=== PATIENT | male | born 1950 | race Caucasian/White ===

== ENCOUNTER 2017-02-06 05:27 | Observation (INO) ==
--- NOTE | 2017-02-06 05:55 | Emergency Department Note ---
Disposition Clinical Impression: Laceration Anemia Qualifiers: Anemia type: unspecified type Qualified Code(s): D64.9 - Anemia, unspecified Disposition: Admitted As Inpatient Condition: Serious Referrals: Dean Singh MD [Primary Care Provider] - Forms: ED Satisfaction Letter Time of Disposition: 06:34 Extremity Problem HPI - General Chief complaint: ED Extremity Problem,Nontraumatic Stated complaint: L Foot Bleeding Won't Stop Time Seen by Provider: 02/06/17 05:42 Source: patient Mode of arrival: private vehicle Limitations: no limitations Nursing Notes Reviewed: Yes Vital Signs Reviewed: Yes - History of Present Illness HPI Narrative: 66-year-old male with past medical history of DVT and PE on Coumadin presents with significant bleeding from his left first toe. He stubbed the toe 5 days ago with uncontrolled bleeding. He was seen in the emergency department with a tight dressing placed. Before he was able to get home he had to return to the emergency department that night and had another dressing placed with Surgicel with resolution of his bleeding. He would not allow his to change the dressing until today and when she attempted to change the dressing immediately started bleeding significantly. It bled on his floor despite the use of direct pressure and surgeon himself from his . They placed a garbage bag around it tightly with collected several hundred mL of blood. He admits to lightheadedness since this. He denies any chest pain or shortness of breath. He denies any new injury. X-ray on the index visit was negative for fracture. Pain Scale: 0 - Related Data Home Medications Medication Instructions Recorded Confirmed Allopurinol [Zyloprim] 100 mg PO BID 09/16/15 09/16/15 Aspirin [Adult Low Dose Aspirin EC] 81 mg PO QPM 09/16/15 09/16/15 Ferrous Sulfate 325 mg PO BID 09/16/15 09/16/15 Furosemide [Lasix] 40 mg PO DAILY 09/16/15 09/16/15 Insulin Glargine,Hum.rec.anlog 25 unit SQ DAILY 09/16/15 09/16/15 [Lantus Solostar] Loratadine [Claritin] 10 mg PO DAILY 09/16/15 09/16/15 Pantoprazole Sodium [Protonix] 40 mg PO DAILY 09/16/15 09/16/15 Potassium Chloride 20 meq PO BID 09/16/15 09/16/15 Warfarin [Coumadin] 7.5 mg PO AD PRN 09/16/15 09/16/15 Warfarin [Coumadin] 10 mg PO AD PRN 09/16/15 09/16/15 Previous Rx's Medication Instructions Recorded Atorvastatin [Lipitor] 40 mg PO HS #30 tablet 09/18/15 Levothyroxine [Synthroid] 100 mcg PO DAILY #30 tablet 09/18/15 Allergies Allergy/AdvReac Type Severity Reaction Status Date / Time lisinopril AdvReac Cough Verified 02/06/17 05:33 All systems ED: reviewed and negative except as stated. Past Medical History - Past Medical History Attestation: Yes The following information was validated with the patient. Medical history: Reports: arthritis, atrial fibrillation, cardiomyopathy, CHF, COPD, coronary artery disease, DVT, diabetes, GERD, hyperlipidemia, hypertension , myocardial infarction, renal disease, venous stasis, other Surgical history: Reports: angioplasty/stent, coronary bypass (CABG), pacemaker/ AICD Psychiatric history: Reports: no psych history - Social History Smoking Status: Never smoker Smokeless Tobacco Status: No Alcohol use: Reports: none Drug use: Reports: none Physical Exam - Head Head exam: atraumatic, normocephalic, normal inspection - Eye Eye exam: Present: conjunctival pallor, PERRL, EOMI - ENT ENT exam: normal exam, normal oropharynx, mucous membranes moist - Neck Neck exam: Present: normal inspection, full ROM, trachea midline - Chest Chest inspection: Present: normal inspection, symmetric chest wall rise - Respiratory Respiratory exam: Clear to auscultation bilaterally without wheezes rales or rhonchi Cardiovascular Cardiovascular exam: Present: regular rate, normal rhythm, normal heart sounds - Abdominal Exam Abdominal exam: Present: soft, Non-Tender. Absent: tenderness, distention, guarding, rebound, rigidity - Extremities Exam Initially, the left foot was wrapped with a garbage bag that was taped tightly and his ankle. When I was removing this, it became apparent that the bag was full of blood. I placed a blood pressure cuff to his calf as a tourniquet and completed the removal. There was a site to his left great toenail bed that was oozing blood where he had had the injury from stubbing his toe. Surgicel was placed and this was wrapped with a tight Coban dressing over 4 x 4's. Tourniquet was taken down and there is no further bleeding. - Back Exam Back exam: Present: normal inspection, full ROM. Absent: tenderness, CVA tenderness (R), CVA tenderness (L) - Neurological Exam Neurological exam: Present: alert, oriented X3, CN II-XII intact - Psychiatric Psychiatric exam: Present: normal affect, normal mood - Skin Skin exam: Present: warm, dry, intact, pallor - General General appearance: alert, in no apparent distress Course - Reevaluation(s) Reevaluation #1: Bleeding is controlled at this time. Dr. anthony notify the patient and will see patient in consult. He may need to take patient to the OR today for repair and washout. We will admit patient to hospitalist. Type and cross is ordered. Vitamin K is ordered. Time: 06:33 Vital Signs Temperature 97.8 F 02/06/17 05:28 Pulse Rate 81 02/06/17 05:28 Respiratory Rate 20 02/06/17 05:28 Blood Pressure 106/63 02/06/17 05:28 O2 Sat by Pulse Oximetry 99 02/06/17 05:28 Temperature 97.8 F 02/06/17 05:28 Pulse Rate 78 02/06/17 06:26 Respiratory Rate 16 02/06/17 06:26 Blood Pressure 109/69 02/06/17 06:26 O2 Sat by Pulse Oximetry 98 02/06/17 06:26 Oxygen Delivery Oxygen Delivery Room Air Extremity Problem, Nontraumati - Lab Data Result diagrams: 02/06/17 05:47 02/06/17 05:47 Lab Results 02/06/17 02/06/17 02/06/17 Range/Units 05:47 05:47 05:47 WBC 6.2 (4.3-11.1) K/mcL RBC 2.75 L (4.19-5.50) M/mcL Hgb 8.1 L (12.9-16.9) g/dL Hct 24.6 L (37.5-50.1) % MCV 89.5 (83.0-100.0) fL MCH 29.5 (28.0-33.3) pg MCHC 32.9 (31.6-35.5) g/dL RDW 18.9 H (11.5-14.5) % Plt Count 150 (140-400) K/mcL MPV 9.6 (9.4-12.4) fL Immature Gran % 0.3 (0-4) % Seg Neutrophils % 75.8 % Lymphocytes % 11.9 % Monocytes % 9.2 % Eosinophils % 2.6 % Basophils % 0.2 % Neutrophils # 4.7 (1.6-8.9) K/mcL Lymphocytes # 0.7 (0.6-4.6) K/mcL Monocytes # 0.6 (0.0-1.3) K/mcL Eosinophils # 0.2 (0.0-0.6) K/mcL Basophils # 0.0 (0.0-0.2) K/mcL PT 20.6 H D (9.4-12.1) Seconds INR 1.9 D APTT 38.2 H (26.0-36.0) Seconds Sodium 138 (136-145) mEq/L Potassium 4.2 (3.5-4.5) mEq/L Chloride 104 (98-109) mEq/L Carbon Dioxide 24 (19-29) mEq/L BUN 78 H (8-26) mg/dL Creatinine 2.73 H (0.72-1.25) mg/dL Est GFR ( Amer) 29 L (> 60) Est GFR (Non-Af Amer) 24 L (> 60) BUN/Creatinine Ratio 29 H (6-26) Glucose 123 H (70-99) mg/dL Calculated Osmolality 311 H (280-300) Calcium 8.8 (8.6-10.8) mg/dL Attestation Statement - Attestation Attestation: I, Alexei Nixon, examined this patient and my medical decision-making was reviewed with the SENIOR STATISTICIAN/PA/Advanced Practice Nurse/Resident Physician. I agree with the documented findings, disposition and treatment plan as described except to the extent set forth below. 66-year-old male presents with bleeding from the left great toe. Patient states he stubbed his toe 4 days ago and had a significant amount of bleeding. He states his INR at that time was 4.5. He stopped taking his Coumadin and recently started again today per her doctor's instructions. Patient had a hemoglobin of 8.5 at that time. Today the patient had a significant amount of bleeding from the site after the bandage came loose. Patient presents in the emergency department with a significant amount of blood in a plastic bag and in the dressing surrounding bleeding site. Patient states that he is symptomatic with increased weakness and fatigue over the past few hours. Patient is pale on my physical exam. He has a blood pressure with systolic 97. Patient will likely be admitted for further care and evaluation of anemia secondary to laceration of great toe nailbed.
[2017-02-06 05:57] LABS: Basophils % 0.2 %; Eosinophils # 0.2 K/mcL (0.0-0.6); Eosinophils % 2.6 %; Hematocrit 24.6 % (37.5-50.1); Hemoglobin 8.1 g/dL (12.9-16.9); Immature Granulocytes % 0.3 % (0-4); Lymphocytes # 0.7 K/mcL (0.6-4.6); Lymphocytes % 11.9 %; Mean Corpuscular HGB Conc 32.9 g/dL (31.6-35.5); Mean Corpuscular Hemoglobin 29.5 pg (28.0-33.3); Mean Corpuscular Volume 89.5 fL (83.0-100.0); Mean Platelet Volume 9.6 fL (9.4-12.4); Monocytes # 0.6 K/mcL (0.0-1.3); Monocytes % 9.2 %; Neutrophils # 4.7 K/mcL (1.6-8.9); Platelet Count 150 K/mcL (140-400); Red Blood Count 2.75 M/mcL (4.19-5.50); Red Cell Distribution Width 18.9 % (11.5-14.5); Segmented Neutrophils % 75.8 %
[2017-02-06 06:04] LABS: INR 1.9; Prothrombin Time 20.6 Seconds (9.4-12.1)
[2017-02-06 06:05] LABS: Activated Partial Thrombo Time 38.2 Seconds (26.0-36.0)
[2017-02-06 06:10] LABS: Calcium 8.8 mg/dL (8.6-10.8); Potassium 4.2 mEq/L (3.5-4.5)
[2017-02-06] MEDS ORDERED: *HR* FentaNYL (PF) 100 MCG/2 ML VIAL IVP ONE ×2 (06:11→07:28)
--- NOTE | 2017-02-06 07:29 | Emergency Department Note ---
Disposition Clinical Impression: Laceration Anemia Qualifiers: Anemia type: unspecified type Qualified Code(s): D64.9 - Anemia, unspecified Disposition: Admitted As Inpatient Condition: Serious General Adult HPI - General Chief complaint: ED Extremity Problem,Nontraumatic Stated complaint: L Foot Bleeding Won't Stop Time Seen by Provider: 02/06/17 05:42 Source: patient Mode of arrival: private vehicle Limitations: no limitations - History of Present Illness Pain Scale: 0 - Related Data Home Medications Medication Instructions Recorded Confirmed Allopurinol [Zyloprim] 100 mg PO BID 09/16/15 02/06/17 Aspirin [Adult Low Dose Aspirin EC] 81 mg PO QPM 09/16/15 02/06/17 Ferrous Sulfate 325 mg PO BID 09/16/15 02/06/17 Furosemide [Lasix] 40 mg PO DAILY 09/16/15 02/06/17 Pantoprazole Sodium [Protonix] 40 mg PO DAILY 09/16/15 02/06/17 Potassium Chloride 20 meq PO BID 09/16/15 02/06/17 Warfarin [Coumadin] 7.5 mg PO TUTHSA 09/16/15 02/06/17 Warfarin [Coumadin] 10 mg PO SUMOWEFR 09/16/15 02/06/17 Carvedilol [Coreg] 6.25 mg PO BID 02/06/17 02/06/17 HYDROcodone/Acet 5/325 mg [[place] 1 tab PO BID PRN 02/06/17 02/06/17 5-325 mg] Insulin DETEMIR [Levemir Flextouch] 20 unit SQ HS 02/06/17 02/06/17 Losartan [Cozaar] 12.5 mg PO DAILY 02/06/17 02/06/17 Metolazone [Zaroxolyn] 2.5 mg PO Q48H 02/06/17 02/06/17 Mv-Mn/FA/Vit K/Lycop/Lut/Coq10 1 each PO BID 02/06/17 02/06/17 [Daily Multivitamin Capsule] Previous Rx's Medication Instructions Recorded Levothyroxine [Synthroid] 100 mcg PO DAILY #30 tablet 09/18/15 Allergies Allergy/AdvReac Type Severity Reaction Status Date / Time lisinopril AdvReac Cough Verified 02/06/17 06:42 Past Medical History - Past Medical History Medical history: Reports: arthritis, atrial fibrillation, cardiomyopathy, CHF, COPD, coronary artery disease, DVT, diabetes, GERD, hyperlipidemia, hypertension , myocardial infarction, renal disease, venous stasis, other Surgical history: Reports: angioplasty/stent, coronary bypass (CABG), pacemaker/ AICD Psychiatric history: Reports: no psych history - Social History Smoking Status: Never smoker Smokeless Tobacco Status: No Alcohol use: Reports: none Drug use: Reports: none Physical Exam - General Limitations: no limitations General appearance: alert, in no apparent distress Course Vital Signs Temperature 97.8 F 02/06/17 05:28 Pulse Rate 81 02/06/17 05:28 Respiratory Rate 20 02/06/17 05:28 Blood Pressure 106/63 02/06/17 05:28 O2 Sat by Pulse Oximetry 99 02/06/17 05:28 Temperature 97.8 F 02/06/17 05:28 Pulse Rate 77 02/06/17 07:22 Respiratory Rate 18 02/06/17 07:26 Blood Pressure 100/80 02/06/17 07:26 O2 Sat by Pulse Oximetry 97 02/06/17 07:22 Oxygen Delivery Oxygen Delivery Room Air Medical Decision Making - Lab Data Result diagrams: 02/06/17 05:47 02/06/17 05:47 Lab Results 02/06/17 02/06/17 02/06/17 Range/Units 05:47 05:47 05:47 WBC 6.2 (4.3-11.1) K/mcL RBC 2.75 L (4.19-5.50) M/mcL Hgb 8.1 L (12.9-16.9) g/dL Hct 24.6 L (37.5-50.1) % MCV 89.5 (83.0-100.0) fL MCH 29.5 (28.0-33.3) pg MCHC 32.9 (31.6-35.5) g/dL RDW 18.9 H (11.5-14.5) % Plt Count 150 (140-400) K/mcL MPV 9.6 (9.4-12.4) fL Immature Gran % 0.3 (0-4) % Seg Neutrophils % 75.8 % Lymphocytes % 11.9 % Monocytes % 9.2 % Eosinophils % 2.6 % Basophils % 0.2 % Neutrophils # 4.7 (1.6-8.9) K/mcL Lymphocytes # 0.7 (0.6-4.6) K/mcL Monocytes # 0.6 (0.0-1.3) K/mcL Eosinophils # 0.2 (0.0-0.6) K/mcL Basophils # 0.0 (0.0-0.2) K/mcL PT 20.6 H D (9.4-12.1) Seconds INR 1.9 D APTT 38.2 H (26.0-36.0) Seconds Sodium 138 (136-145) mEq/L Potassium 4.2 (3.5-4.5) mEq/L Chloride 104 (98-109) mEq/L Carbon Dioxide 24 (19-29) mEq/L BUN 78 H (8-26) mg/dL Creatinine 2.73 H (0.72-1.25) mg/dL Est GFR ( Amer) 29 L (> 60) Est GFR (Non-Af Amer) 24 L (> 60) BUN/Creatinine Ratio 29 H (6-26) Glucose 123 H (70-99) mg/dL Calculated Osmolality 311 H (280-300) Calcium 8.8 (8.6-10.8) mg/dL Blood Type Antibody Screen 02/06/17 Range/Units 06:05 WBC (4.3-11.1) K/mcL RBC (4.19-5.50) M/mcL Hgb (12.9-16.9) g/dL Hct (37.5-50.1) % MCV (83.0-100.0) fL MCH (28.0-33.3) pg MCHC (31.6-35.5) g/dL RDW (11.5-14.5) % Plt Count (140-400) K/mcL MPV (9.4-12.4) fL Immature Gran % (0-4) % Seg Neutrophils % % Lymphocytes % % Monocytes % % Eosinophils % % Basophils % % Neutrophils # (1.6-8.9) K/mcL Lymphocytes # (0.6-4.6) K/mcL Monocytes # (0.0-1.3) K/mcL Eosinophils # (0.0-0.6) K/mcL Basophils # (0.0-0.2) K/mcL PT (9.4-12.1) Seconds INR APTT (26.0-36.0) Seconds Sodium (136-145) mEq/L Potassium (3.5-4.5) mEq/L Chloride (98-109) mEq/L Carbon Dioxide (19-29) mEq/L BUN (8-26) mg/dL Creatinine (0.72-1.25) mg/dL Est GFR ( Amer) (> 60) Est GFR (Non-Af Amer) (> 60) BUN/Creatinine Ratio (6-26) Glucose (70-99) mg/dL Calculated Osmolality (280-300) Calcium (8.6-10.8) mg/dL Blood Type A POSITIVE Antibody Screen NEGATIVE Attestation Statement - Attestation Attestation: I was not involved in the care of this patient. Prior to transport to the floor , he did request an additional dose of analgesics for his foot pain. I did order a dose of fentanyl which she tolerated previously during his emergency department visit
[2017-02-06] MEDS ORDERED: Naloxone 0.4 MG/ML INJ IVP PRN (09:11)
[2017-02-06] MEDS ORDERED: Acetaminophen 325 MG TABLET PO PRN (09:11)
[2017-02-06] MEDS ORDERED: Ondansetron ODT 4 MG TAB.RAPDIS SL PRN (09:11)
[2017-02-06] MEDS ORDERED: *HR* Morphine 2 MG/ML SYRINGE IVP PRN (09:11)
[2017-02-06] MEDS ORDERED: *HR* HYDROcodone/Acet 5/325 mg TABLET PO PRN (09:11)
[2017-02-06] MEDS ORDERED: metOLazone 2.5 MG TABLET PO SCH (10:00)
[2017-02-06] MEDS ORDERED: D5% in Water 1,000 ML IVC PRN (10:07)
[2017-02-06] MEDS ORDERED: *HR* Dextrose 50 % in Water (Syg) 50 ML SYRINGE IVP PRN (10:07)
[2017-02-06] MEDS ORDERED: Dextrose Gel 15 GM PO PRN ×2 (10:07)
--- NOTE | 2017-02-06 10:57 | Event Note ---
Date of Encounter: 02/06/17 Time of Encounter: 10:52 Patient seen and examined with nurse practitioner. Patient had traumatic avulsion of the left great toe nail 5 days ago after which he presented to the emergency room addressing was placed and he was advised to discontinue Coumadin and to restarted again 3 days ago. He restarted taking Coumadin for the past 3 days. His was unwrapping the dressing and noted large amount of blood approximately half a liter coming from the wound. Presented again to the emergency room and dressing was applied to act as a [place] to stop bleeding. I was unable to evaluate his left foot cause of concern of really bleeding. We will discuss the case now with podiatry service. Will discuss with them that they feel patient needs antibiotics according to their exam will be ordered. Patient has acute blood loss anemia both half a gram hemoglobin dropped. We follow that. His INR today's 1.9. He has received 10 mg IV vitamin K in the emergency room. No active bleeding currently. He has acute and chronic kidney injury probably from cute blood loss and relative hypotension. Will hold his diuretics today. Patient is focal.
--- NOTE | 2017-02-06 10:59 | Podiatry Consult Note ---
Date of Encounter: 02/06/17 Time of Encounter: 10:57 Assessment and Plan (1) Laceration Current visit: Yes Status: Acute From my standpoint at this time the patient could be discharged. I understand the patient will likely need to have a stable hemoglobin level as well as a therapeutic INR level prior to discharge. From a podiatric standpoint this patient can be discharged with the current dressing which is in place and empiric antibiotics due to the long-standing open lesion. Keflex was prescribed and a prescription was written. The patient will not change the dressing and leave the dressing intact until he follows up with me in approximately 1 week. We will change his dressings in clinic. The patient will limit his ambulation. Patient will keep the dressings clean dry and intact until the next visit. History of Present Illness Chief complaint: Uncontrolled bleeding left great toe HPI: Mr. Ocasio is a 66 year old male who presents to the hospital with multiple comorbidities and uncontrolled bleeding to his left great toe. Patient has had multiple trips to the emergency department. At this time during the most recent trip his INR has come down to 1.9 and the patient relates that the bleeding seems to have stabilized since the emergency department put on a dressing. Patient relates that the dressing feels too tight and it feels as though it is coming off his circulation. Patient denies any other pedal complaints. Past Med Surg Social Fam HX - Past Medical History Medical history: arthritis, atrial fibrillation, cardiomyopathy, CHF, COPD, coronary artery disease, DVT, diabetes, GERD, hyperlipidemia, hypertension, myocardial infarction, renal disease, venous stasis, other Psychiatric history: no psych history - Past Surgical History Surgical History: angioplasty/stent, coronary bypass (CABG), pacemaker/AICD - Social History Smoking Status: Never smoker Smokeless Tobacco Status: No Alcohol use: none Drug use: none - Family History Father History Unknown: Yes Age at : 56 Cause of : Cancer (lymph) Hx Family Cancer: Yes Mother History Unknown: Yes Age at : 55 Cause of : Heart Hx Family Cardiac Disorders: Yes Sister History Unknown: Yes Age at : 36 Cause of : Heart attack Hx Family Cardiac Disorders: Yes Medications and Allergies Allopurinol [Zyloprim] 100 mg PO BID 09/16/15 [History] Aspirin [Adult Low Dose Aspirin EC] 81 mg PO QPM 09/16/15 [History] Ferrous Sulfate 325 mg PO BID 09/16/15 [History] Furosemide [Lasix] 40 mg PO DAILY 09/16/15 [History] Pantoprazole Sodium [Protonix] 40 mg PO DAILY 09/16/15 [History] Potassium Chloride 20 meq PO BID 09/16/15 [History] Warfarin [Coumadin] 7.5 mg PO TUTHSA 09/16/15 [History] Warfarin [Coumadin] 10 mg PO SUMOWEFR 09/16/15 [History] Levothyroxine [Synthroid] 100 mcg PO DAILY #30 tablet 09/18/15 [Rx] Carvedilol [Coreg] 6.25 mg PO BID 02/06/17 [History] Cephalexin [Keflex] 500 mg PO BID #12 capsule 02/06/17 [Rx] HYDROcodone/Acet 5/325 mg [[place] 5-325 mg] 1 tab PO BID PRN 02/06/17 [History] Insulin DETEMIR [Levemir Flextouch] 20 unit SQ HS 02/06/17 [History] Losartan [Cozaar] 12.5 mg PO DAILY 02/06/17 [History] Metolazone [Zaroxolyn] 2.5 mg PO Q48H 02/06/17 [History] Mv-Mn/FA/Vit K/Lycop/Lut/Coq10 [Daily Multivitamin Capsule] 1 each PO BID [History] Allergies lisinopril Adverse Reaction (Verified 02/06/17 06:42) Cough All Systems Reviewed: A 10-system review of systems was performed and is negative for pertinent findings except as documented above in the HPI. Physical Exam - Constitutional Vitals: Temp Pulse Resp BP Pulse Ox 97.4 F L 77 16 101/69 97 02/06/17 08:12 02/06/17 08:12 02/06/17 08:12 02/06/17 08:12 02/06/17 08:12 Exam: Multiple small excoriations noted bilateral lower extremities no bleeding noted. The left great toe has a small laceration noted with Surgicel covering the laceration. The Surgicel was not removed due to concerns of bleeding and the site appears to be stable and not bleeding at this point. The bleeding appears to have stopped. No erythema or proximally ascending lymphangitis noted. Capillary fill time is intact to digits. Sensation is grossly intact to light touch. Results - Labs Result Diagrams: 02/06/17 05:47 02/06/17 05:47 Labs: Abnormal lab results RBC 2.75 M/mcL (4.19-5.50) L 02/06/17 05:47 Hgb 8.1 g/dL (12.9-16.9) L 02/06/17 05:47 Hct 24.6 % (37.5-50.1) L 02/06/17 05:47 RDW 18.9 % (11.5-14.5) H 02/06/17 05:47 PT 20.6 Seconds (9.4-12.1) H D 02/06/17 05:47 APTT 38.2 Seconds (26.0-36.0) H 02/06/17 05:47 BUN 78 mg/dL (8-26) H 02/06/17 05:47 Creatinine 2.73 mg/dL (0.72-1.25) H 02/06/17 05:47 Est GFR ( Amer) 29 (> 60) L 02/06/17 05:47 Est GFR (Non-Af Amer) 24 (> 60) L 02/06/17 05:47 BUN/Creatinine Ratio 29 (6-26) H 02/06/17 05:47 Glucose 123 mg/dL (70-99) H 02/06/17 05:47 Calculated Osmolality 311 (280-300) H 02/06/17 05:47 All other labs normal. Consult Discharge Plan - Plan Referrals: Dean Singh MD [Primary Care Provider] - 02/15/17 3:15 pm () Prescriptions: Cephalexin [Keflex] 500 mg PO BID #12 capsule
[2017-02-06 11:26] LABS: Hematocrit 22.7 % (37.5-50.1); Hemoglobin 7.5 g/dL (12.9-16.9)
--- NOTE | 2017-02-06 11:46 | Internal Med History&Physical ---
Date of Encounter: 02/06/17 Time of Encounter: 08:00 Assessment and Plan (1) Nail avulsion of toe Current visit: Yes Status: Acute Assess: Patient presents to ED with laceration of the left great toe and avulsion of the left nail of the great toe which resulted in uncontrolled bleeding. Patient' s INR was 1.9 on admission and he was given 10 mg of vitamin K in the ED. Patient's Hgb was 8.1 which was down from 8.5. Plan: Patient placed as observation status Hold Coumadin therapy for now until INR level increases Continue 81 mg aspirin therapy Podiatry consult ordered and confirmed with Dr. Castellon who examined patient's toe and determined that patient could be discharged and seen by him in the office for dressing changes. Dr. Castellon also ordered Keflex for outpatient status once patient is discharged. Keflex 500 mg PO QID ordered while inpatient H&H ordered Acetaminophen ordered PRN for pain rating of 1-3 Hydrocodone ordered PRN for pain rating of 4-6 Morphine ordered PRN for pain rating of 7-10 Bed rest ordered with assist to bathroom Qualifiers: Encounter type: initial encounter Qualified Code(s): S91.209A - Unspecified open wound of unspecified toe(s) with damage to nail, initial encounter (2) History of atrial fibrillation Current visit: Yes Status: Acute Assess: Patient presents with lengthy history of cardiac issues including atrial fibrillation, cardiomyopathy, CHF, coronary artery disease, DVT, PE, hyperlipidemia, hypertension, myocardial infarction, and venous stasis. Patient has history of repeated blood clots and triple bypass. Patient was placed on ECMO for 4 days at [facility] 2 years ago on 01/28/2015 following CABG. Plan: Continuous cardiac monitoring ordered Coumadin therapy held due to patient's INR level of 1.9. Patient received 10 mg of vitamin K in ED. We will continue to monitor INR. EKG ordered Continue low-dose aspirin therapy Continue carvedilol Hold furosemide Hold potassium chloride Hold Losartan Monitor patient's vital signs Follow-up blood work ordered Cardiac diet ordered (3) Diabetes mellitus Current visit: Yes Status: Chronic Assess: Patient has history of DM and diabetic neuropathy in lower extremities. Patient currently has discolored lower extremities bilaterally with scabbing present and reduced peripheral pulses. Plan: Glucose monitoring ordered Home insulin held Levemir basal dosing order to 20 units SQ at bedtime Correction insulin dosing ordered Hyperglycemic protocol ordered Diabetic diet ordered Qualifiers: Diabetes mellitus type: type 2 Diabetes mellitus complication status: with unspecified complications Diabetes mellitus director long term care insulin use: without longterm use Qualified Code(s): E11.8 - Type 2 diabetes mellitus with unspecified complications (4) Dyslipidemia Current visit: Yes Status: Chronic Assess: Patient presents with history of hyperlipidemia. Plan: Lipid panel ordered Continue low-dose aspirin therapy Monitor patient's labs (5) Hypertension Current visit: Yes Status: Chronic Assess: Patient presents with history of hypertension and other cardiac co-morbidities. Plan: Hold Losartan due to patient's BP of 100/80. Will continue Losartan if BP increases. Hold Metolazone due to patient's BP of 100/80. Will continue if BP increases. Monitor patient's BP and vital signs Qualifiers: Hypertension type: essential hypertension Qualified Code(s): I10 - Essential (primary) hypertension (6) DVT prophylaxis Current visit: Yes Status: Acute Assess: Patient presents with lengthy history of cardiac issues including atrial fibrillation, cardiomyopathy, CHF, coronary artery disease, DVT, PE, hyperlipidemia, hypertension, myocardial infarction, and venous stasis. Patient has history of repeated blood clots and triple bypass. Plan: Continuous cardiac monitoring ordered Coumadin therapy held due to patient's INR level of 1.9. Patient received 10 mg of vitamin K in ED. We will continue to monitor INR. Continue low-dose aspirin therapy Continue carvedilol Monitor patient's vital signs Internal Medicine - H&P: HPI Chief complaint: Uncontrolled bleeding of left great toe Admitted From: Emergency Dept Plans for Post Hospital Care: Home History of present illness: Mr. Ocasio is a 66 year old male who presents from the ED with chief complaint of uncontrolled bleeding from left great toe. Patient reports he stubbed his toe last and began bleeding when his attempted to change the dressing. Patient's hemoglobin was 8.1 upon admission and INR was 1.9. Patient was given 10 mg of vitamin K in the ED. Patient presents with lengthy history of cardiac issues including atrial fibrillation, cardiomyopathy, CHF, coronary artery disease, DVT, PE, hyperlipidemia, hypertension, myocardial infarction, and venous stasis. Patient has history of repeated blood clots and triple bypass. Patient was placed on ECMO for 4 days at [facility] 2 years ago on following CABG. Mr. Ocasio reports headaches and left calf pain over past 48 hours. DVT protocol ordered. Patient reports his pacemaker is currently working at 40% and he is in constant atrial fibrillation. Patient has small bruising and hematomas on the arms and lower extremities and back due to anticoagulation. Patient's lower legs are also discolored bilaterally with scabbing and reduced peripheral pulses bilaterally due to diabetic neuropathy. Podiatry consult ordered. Patient was examined by Dr. Castellon to determine the patient was to be discharged to his care for dressing changes in his office. Dr. castellon also ordered Keflex for the patient on outpatient basis. 500 mg by mouth 4 times a day was ordered patient during inpatient status EKG ordered post admission along with lipid panel continuous cardiac monitoring, and continuous vital sign monitoring. Patient also reports area over his pacemaker is fluid-filled and has begun to itch over the past week. Past Med Surg Social Fam HX - Past Medical History Medical history: arthritis, atrial fibrillation, cardiomyopathy, CHF, COPD, coronary artery disease, DVT, diabetes, GERD, hyperlipidemia, hypertension, myocardial infarction, pulmonary embolus, renal disease, thyroid disease, venous stasis, other Psychiatric history: no psych history - Past Surgical History Surgical History: angioplasty/stent, coronary bypass (CABG), pacemaker/AICD - Social History Smoking Status: Never smoker Smokeless Tobacco Status: No Alcohol use: none Drug use: none Occupational status: retired Current living situation: Home, With Family Activity Level: Independent ambulation Recent Out of Country Travel Within the Last 8 Weeks: No Exposure or Possible Exposure to Illness During Travel: No - Family History Father Race: Family Member Ethnicity: Non- Age at : 56 Cause of : Cancer (lymph) Hx Family Cancer: Yes Mother Race: Family Member Ethnicity: Non- Age at : 55 Cause of : Heart Hx Family Cardiac Disorders: Yes Sister Race: Family Member Ethnicity: Non- Age at : 38 Cause of : Heart attack Hx Family Cardiac Disorders: Yes Brother Race: Family Member Ethnicity: Non- Living Status: Still Living Hx Family Cardiac Disorders: Yes (Two MS's) Internal Medicine - H&P: Meds Allopurinol [Zyloprim] 100 mg PO BID 09/16/15 [History] Aspirin [Adult Low Dose Aspirin EC] 81 mg PO QPM 09/16/15 [History] Ferrous Sulfate 325 mg PO BID 09/16/15 [History] Furosemide [Lasix] 40 mg PO DAILY 09/16/15 [History] Pantoprazole Sodium [Protonix] 40 mg PO DAILY 09/16/15 [History] Potassium Chloride 20 meq PO BID 09/16/15 [History] Warfarin [Coumadin] 7.5 mg PO TUTHSA 09/16/15 [History] Warfarin [Coumadin] 10 mg PO SUMOWEFR 09/16/15 [History] Levothyroxine [Synthroid] 100 mcg PO DAILY #30 tablet 09/18/15 [Rx] Carvedilol [Coreg] 6.25 mg PO BID 02/06/17 [History] Cephalexin [Keflex] 500 mg PO BID #12 capsule 02/06/17 [Rx] HYDROcodone/Acet 5/325 mg [[place] 5-325 mg] 1 tab PO BID PRN 02/06/17 [History] Insulin DETEMIR [Levemir Flextouch] 20 unit SQ HS 02/06/17 [History] Losartan [Cozaar] 12.5 mg PO DAILY 02/06/17 [History] Metolazone [Zaroxolyn] 2.5 mg PO Q48H 02/06/17 [History] Mv-Mn/FA/Vit K/Lycop/Lut/Coq10 [Daily Multivitamin Capsule] 1 each PO BID [History] Allergies lisinopril Adverse Reaction (Verified 02/06/17 06:42) Cough All Systems PM: A 10-system review of systems was performed and is negative for pertinent findings except as documented above in the HPI. - Constitutional Constitutional: no chills, no fever(s), no night sweats - EENT Eyes: no change in vision, no discharge, no pain, no photophobia Ears: decreased hearing Additional comments: Patient has history of decreased hearing bilaterally, which is his baseline. Nose, mouth and throat: no dysphagia, no nasal discharge, no neck pain, no sore throat - Breasts Breasts: as per HPI - Cardiovascular Cardiovascular ROS IM: as per HPI, irregular heart rhythm (Patient has history of atrial fibrillation) - Respiratory Respiratory: no cough, no dyspnea, no wheezing, no excessive phlegm production - Gastrointestinal Gastrointestinal: no abdominal pain, no diarrhea, no hematemesis, no hematochezia, no melena, no nausea, no vomiting - Genitourinary Genitourinary ROS male: as per HPI - Musculoskeletal Musculoskeletal ROS IM: no numbness, no tingling - Integumentary Integumentary IM: as per HPI, unusual bruising (Patient has several small areas of bruising on the back, arms, and a hematoma on the left hip due to anticoagulation therapy) - Neurological Neurological ROS: no confusion, no convulsions, no focal weakness, no numbness, no tingling, no tremor(s) - Psychiatric Psychiatric: as per HPI - Endocrine Endocrine IM: as per HPI - Hematologic/Lymphatic Hematologic/Lymphatic: as per HPI, easy bleeding (Patient's INR is currently 1.9. He was given 10 mg of vitamin K in the ED. Patient presented to ED with uncontrolled bleedin gof left great toe.), easy bruising (Patient has areas of bruising and hematomas related to anticoagulation therapy) - Allergic/Immunologic Allergic/Immunologic: as per HPI - Constitutional Vitals: Temp Pulse Resp BP Pulse Ox 97.7 F 84 16 113/76 98 02/06/17 11:35 02/06/17 11:35 02/06/17 11:35 02/06/17 11:35 02/06/17 11:35 General appearance: Present: cooperative, mild distress, A&O X 3, pleasant, answers questions appropriately - Head Head exam: Present: atraumatic, normocephalic - Eye Eye exam: Present: PERRL, conjuntiva pink, sclera anicteric Pupils: Present: PERRL - ENT ENT exam: Present: normal exam, normal external ear exam - Neck Neck exam general surgery: Present: supple, trachea midline. Absent: lymphadenopathy - Respiratory Respiratory exam: Present: CTAB. Absent: accessory muscle use, rales, rhonchi, wheezes - Cardiovascular Cardiovascular exam: Present: RRR, +S1, +S2. Absent: diastolic murmur, gallop, rubs, systolic murmur - GI/Abdominal GI/Abdominal exam: Present: normal bowel sounds, soft, no peritoneal signs. Absent: distended, tenderness - Rectal Rectal exam: Present: deferred - Additional comments: exam deferred. - Extremities Exam Additional comments: Patient's lower legs discolored bilaterally with scabbing present. Legs are warm with reduced peripheral pulses bilaterally. - Back Exam Back exam: Present: normal inspection - Neurological Exam Neurological exam: Present: CN II-XII intact, oriented X3, no focal deficits. Absent: pronater drift, facial droop, speech deficit - Psychiatric Psychiatric exam: Present: normal affect, normal mood - Skin Skin exam: Present: dry, warm Internal Med - H&P Results - Labs CBC & Chem 7: 02/06/17 11:12 02/06/17 05:47 Labs: Short CBC 02/06/17 Range/Units 11:12 Hgb 7.5 L (12.9-16.9) g/dL Hct 22.7 L (37.5-50.1) % - EKG Data EKG comments: 02/06/17 12:24 EKG ordered post-admission. - VTE Reasons for not Prescribing Prophylaxis: Not indicated-Anticoagulated or INR therapeutic
[2017-02-06] MEDS: Insulin LISPRO 300 UNITS/3 ML VIAL SQ SCH ×2 (11:55→16:35)
[2017-02-06 12:10] LABS: Hemoglobin A1C 5.5 %
--- NOTE | 2017-02-06 12:13 | Electrocardiograph Report ---
[place] [id number] Test Date: 2017-02-06 Pat Name: Reynaldo Ocasio Department: 112 Room: 2A24 Gender: M [employer] Architect: [id number] Requested By: Yovany Sorto Order Number: [id number] Reading MD: Fátima Novak Measurements Intervals [place] Rate: 76 P: [place]: 0 QRS: 125 QRSD: 129 T: -49 QT: 418 QTc: 448 Interpretive Statements ELECTRONIC VENTRICULAR PACEMAKER ABNORMAL RHYTHM ECG Electronically Signed On 02-06-2017 12:11:36 EDT by Fátima Novak
[2017-02-06 12:32] LABS: Thyroid Stimulating Hormone 6.661 mcIU/mL (0.350-4.840)
[2017-02-06] MEDS: cephALEXin 500 MG CAPSULE PO SCH ×3 (12:52→21:04)
[2017-02-06 18:00] LABS: Hematocrit 22.7 % (37.5-50.1); Hemoglobin 7.3 g/dL (12.9-16.9)
[2017-02-06] MEDS ORDERED: Aspirin Enteric Coated 81 MG Tablet PO SCH (18:00)
[2017-02-06] MEDS ORDERED: Insulin DETEMIR 100 UNIT/ML X5UNITS SQ SCH (21:00)
[2017-02-06] MEDS ORDERED: Insulin LISPRO 300 UNITS/3 ML VIAL SQ SCH (21:00)
[2017-02-06] MEDS: Multivit/Ca/Min/Fe/FA 1 TAB TABLET PO SCH (21:05)
[2017-02-07 02:36] LABS: Basophils % 0.2 %; Eosinophils # 0.1 K/mcL (0.0-0.6); Eosinophils % 2.5 %; Hematocrit 22.5 % (37.5-50.1); Hemoglobin 7.3 g/dL (12.9-16.9); Immature Granulocytes % 0.4 % (0-4); Lymphocytes # 0.6 K/mcL (0.6-4.6); Lymphocytes % 10.4 %; Mean Corpuscular HGB Conc 32.4 g/dL (31.6-35.5); Mean Corpuscular Hemoglobin 29.2 pg (28.0-33.3); Mean Platelet Volume 10.3 fL (9.4-12.4); Monocytes # 0.6 K/mcL (0.0-1.3); Monocytes % 9.8 %; Neutrophils # 4.3 K/mcL (1.6-8.9); Platelet Count 140 K/mcL (140-400); Red Cell Distribution Width 18.5 % (11.5-14.5); Segmented Neutrophils % 76.7 %
[2017-02-07 02:44] LABS: INR 1.8; Prothrombin Time 20.1 Seconds (9.4-12.1)
[2017-02-07 02:47] LABS: Activated Partial Thrombo Time 36.4 Seconds (26.0-36.0)
[2017-02-07 02:53] LABS: Albumin 2.8 g/dL (3.5-5.0); Albumin/Globulin Ratio 0.9 (1.1-2.2); Bilirubin,Total 1.2 mg/dL (0.2-1.2); Calcium 8.6 mg/dL (8.6-10.8); Chol/HDL Ratio 3.9 (0-4.9); Globulin 3.2 g/dL (2.4-3.5); Magnesium 2.4 mg/dL (1.6-2.6); Potassium 3.6 mEq/L (3.5-4.5)
[2017-02-07] MEDS: Multivit/Ca/Min/Fe/FA 1 TAB TABLET PO SCH (08:30)
[2017-02-07] MEDS: cephALEXin 500 MG CAPSULE PO SCH ×2 (08:30→12:54)
[2017-02-07] MEDS: Insulin LISPRO 300 UNITS/3 ML VIAL SQ SCH ×2 (08:32→11:40)
[2017-02-07] MEDS ORDERED: Furosemide 40 MG TABLET PO SCH (09:00)
[2017-02-07 11:46] VITALS: BP 101/67
[2017-02-07] MEDS ORDERED: *HR* HYDROcodone/Acet 5/325 mg TABLET PO PRN (13:05)
[2017-02-07] MEDS ORDERED: *HR* Warfarin 7.5 MG TABLET PO ONE ×2 (14:30→18:00)
--- NOTE | 2017-02-07 14:34 | Discharge Summary ---
Date of Encounter: 02/07/17 Time of Encounter: 12:40 - Discharge Diagnosis (1) Nail avulsion of toe Priority: Primary Status: Acute Qualifiers: Encounter type: initial encounter Qualified Code(s): S91.209A - Unspecified open wound of unspecified toe(s) with damage to nail, initial encounter (2) CKD (chronic kidney disease), stage III Priority: Secondary Status: Chronic (3) Diabetes mellitus Priority: Secondary Status: Chronic Qualifiers: Diabetes mellitus type: type 2 Diabetes mellitus complication status: with unspecified complications Diabetes mellitus snf insulin use: without snf use Qualified Code(s): E11.8 - Type 2 diabetes mellitus with unspecified complications (4) DVT prophylaxis Priority: Secondary Status: Acute (5) History of atrial fibrillation Priority: Secondary Status: Chronic (6) Hypertension Priority: Secondary Status: Chronic Qualifiers: Hypertension type: essential hypertension Qualified Code(s): I10 - Essential (primary) hypertension - Discharge Medications Prescriptions: Cephalexin [Keflex] 500 mg PO BID #12 capsule Home Medications: Allopurinol [Zyloprim] 100 mg PO BID 09/16/15 [History] Aspirin [Adult Low Dose Aspirin EC] 81 mg PO QPM 09/16/15 [History] Ferrous Sulfate 325 mg PO BID 09/16/15 [History] Pantoprazole Sodium [Protonix] 40 mg PO DAILY 09/16/15 [History] Warfarin [Coumadin] 5 mg PO SUMOWEFR 09/16/15 [History] Warfarin [Coumadin] 7.5 mg PO TUTHSA 09/16/15 [History] Levothyroxine [Synthroid] 100 mcg PO DAILY #30 tablet 09/18/15 [Rx] Carvedilol [Coreg] 6.25 mg PO BID 02/06/17 [History] Cephalexin [Keflex] 500 mg PO BID #12 capsule 02/06/17 [Rx] HYDROcodone/Acet 5/325 mg [[place] 5-325 mg] 1 tab PO BID PRN 02/06/17 [History] Insulin DETEMIR [Levemir Flextouch] 20 unit SQ HS 02/06/17 [History] Metolazone [Zaroxolyn] 2.5 mg PO Q48H 02/06/17 [History] Mv-Mn/FA/Vit K/Lycop/Lut/Coq10 [Daily Multivitamin Capsule] 1 each PO BID [History] Allergies/Adverse Reactions: Allergies lisinopril Adverse Reaction (Verified 02/06/17 06:42) Cough Procedures/tests Complete & Pending: Procedures Performed prior 72 hours Category Date Time Status ECG 12 lead ECG [ECG] Stat Y 02/06/17 09:11 Completed Date of admission: 02/06/17 07:07 Primary care physician: Dean Singh MD Consults: Podiatry: Dr. Castellon Discharging clinician: Neetu Webb Anticipated date of discharge: 02/07/17 - Patient Status Disposition: Home, Self-Care Condition: Serious Functional capacity at discharge: independent ambulation - Discharge Instructions Instructions: Warfarin (By mouth), Chronic Kidney Disease (GEN), Diabetes Mellitus Type 2 in Adults (DC) Follow Up With: Jacob Castellon DPM [Partnered Physician] - 02/16/17 2:20 pm Dean Singh MD [Primary Care Provider] - 02/15/17 3:15 pm () Víctor Beyer DO [Partnered Physician] - 03/06/17 8:30 am Additional Instructions: Please follow up with the Anticoagulation clinic as scheduled Please follow up with your primary care physician, rejoiner, and dry can tender as scheduled. Please leave the dressing intact until your follow up appointment with podiatry. Due to your worsening renal function and low BP readings, your home dose of Lasix, Losartan were placed on hold. Continue to hold these medications until your follow up with your primary care physician. Please obtain your lab work before your follow up with your primary care physician. Continue to hold your potassium chloride supplements until you are restarted on Lasix. Continue oral antibiotics as prescribed. Closely monitor your blood pressure at home. Resume all your other home medications as prescribed by your primary care physician. Continue your daily coumadin dosing as prescribed by Coumadin clinic. Please seek medical help if bleeding recurs. - Diet and Activity Activity: resume usual activities as tolerated Diet: diabetic diet, low salt diet Hospital course: Mr. Ocasio is a 66 year old male with PMH of afib on anticoagulation, DM, HTN, CKD , CHF who is admitted for management of uncontrolled bleeding from his left great toe. Patient was seen by podiatry and dressing was changed with resolution of the acute bleed. Patient was cleared for discharge from podiatry stand point yesterday. However he was further kept overnight for observation as he was found to have IVANNA on CKD and also received Vit K 10mg SQ in the ER due to the acute bleed. His renal function is improved from previous day and his home meds of Lasix, Losartan, and Potassium Chloride were placed on hold. At this time, patient is hemodynamically stable with complete resolution of his bleed. He is restarted on coumadin and has an outpatient appointment set up with Coumadin clinic tomorrow. He reports of following closely with his rejoiner and would like to be discharged for further care with him primary rejoiner. He is in no acute distress and states he will follow up with his PCP. Pt will be discharged to home today with follow up with PCP, Home Health Aide, and Podiatry. He is not change the dressing until he sees the dry can tender. Patient demonstrates understanding of his diagnosis and agrees with the discharge care and plan. - Time Spent with Patient Total time spent providing and/or coordinating discharge services: Greater than 30 minutes - Constitutional Vitals: Temp Pulse Resp BP Pulse Ox 97.6 F 80 19 101/67 97 02/07/17 11:44 02/07/17 11:44 02/07/17 11:44 02/07/17 11:44 02/07/17 11:44 General appearance: Present: cooperative, A&O X 3, pleasant, no acute distress, answers questions appropriately - Head Head exam: Present: atraumatic, normocephalic - Eye Eye exam: Present: conjuntiva pink, sclera anicteric - Respiratory Respiratory exam: Present: CTAB. Absent: accessory muscle use, rales, rhonchi, wheezes - Cardiovascular Cardiovascular exam: Present: RRR, +S1, +S2. Absent: diastolic murmur, gallop, rubs, systolic murmur - GI/Abdominal GI/Abdominal exam: Present: normal bowel sounds, soft, no peritoneal signs. Absent: distended, tenderness - Extremities Exam Extremities exam: Present: warm, radial pulses palpable and symetrical. Absent : calf tenderness Additional comments: left foot wrapped in dressing, dressing dry and intact - Neurological Exam Neurological exam: Present: alert, oriented X3 - Psychiatric Psychiatric exam: Present: normal affect, normal mood - VTE Reasons for not Prescribing Prophylaxis: Not indicated-Anticoagulated or INR therapeutic
[2017-02-07] MEDS ORDERED: *HR* Warfarin 10 MG TABLET PO SCH (18:00)
[2017-02-07] MEDS ORDERED: Warfarin perPT PO PRN (18:00)
[2017-02-08] MEDS ORDERED: *HR* Warfarin 7.5 MG TABLET PO SCH ×2 (18:00)
[2017-02-09] MEDS ORDERED: *HR* Warfarin 5 MG TABLET PO SCH (18:00)
== END 2017-02-07 14:45 | disposition home or self-care (01) ==
LOC: EMEROO 05:27 → 2ANU 05:27
PROVIDERS: ADMIT Internal Medicine; ATTEND Internal Medicine